=== PATIENT | female | born 1955 | race Caucasian/White ===

== ENCOUNTER 2018-12-29 08:45 | Day surgery (SDC) | payer OTHER ==
[2018-12-29] MEDS ORDERED: fentaNYL 100 MCG/2 ML VIAL IVP ONE (08:46)
[2018-12-29] MEDS ORDERED: MIDAZOLAM 2 MG/2 ML VIAL IVP ONE (08:46)
[2018-12-29] MEDS ORDERED: LACTATED RINGERS 1,000 ML IV ONE (08:52)
[2018-12-29] MEDS ORDERED: ONDANSETRON 4 MG/2 ML VIAL ONE (09:45)
[2018-12-29 10:35] VITALS: BP 137/77
== END 2018-12-29 08:46 | disposition home or self-care (01) ==
LOC: SDS 08:45
PROVIDERS: ATTEND Internal Medicine
PROC: 0DBN8ZZ Excision of Sigmoid Colon, Via Natural or Artificial Opening Endoscopic (ICD-10-PCS; 2018-12-29)
PROC: 0DBK8ZZ Excision of Ascending Colon, Via Natural or Artificial Opening Endoscopic (ICD-10-PCS; principal; 2018-12-29 10:00)
DX: Z12.11 Encounter for screening for malignant neoplasm of colon (principal); K63.89 Other specified diseases of intestine; K64.8 Other hemorrhoids
CPT/HCPCS: 45380; J7120

== ENCOUNTER 2019-03-23 08:00 | Outpatient (CLI) | payer MEDICARE, OTHER ==
[2019-03-23 12:58] LABS: ALBUMIN 4.3 g/dL (3.2-5.5); ALBUMIN/GLOBULIN RATIO 1.3 (1.0-2.2); BILIRUBIN,TOTAL 0.7 mg/dL (0.2-1.0); CALCIUM 10.3 mg/dL (8.5-10.3); CREATININE 0.7 mg/dL (0.4-1.0); TOTAL PROTEIN 7.7 g/dL (6.7-8.2)
[2019-03-23 13:01] LABS: BASOPHILS % (AUTO) 0.5 %; EOSINOPHILS # (AUTO) 0.1 10^3/uL (0.0-0.7); EOSINOPHILS % (AUTO) 1.4 %; HGB - HEMOGLOBIN 13.7 g/dL (12.0-16.0); LYMPHOCYTES # (AUTO) 1.1 10^3/uL (1.5-3.5); MEAN CORPUSCULAR HEMOGLOBIN 31.4 pg (27.0-31.0); MEAN CORPUSCULAR HGB CONC 33.1 g/dL (32.0-36.0); MEAN PLATELET VOLUME 9.4 fL (7.9-10.8); MONOCYTES # (AUTO) 0.4 10^3/uL (0.0-1.0); MONOCYTES % (AUTO) 10.9 %; NEUTROPHILS # (AUTO) 2.1 10^3/uL (1.5-6.6); NEUTROPHILS % (AUTO) 57.9 %; PLT - PLATELET COUNT 278 10^3/uL (130-450); RED BLOOD COUNT 4.36 10^6/uL (4.20-5.40); RED CELL DISTRIBUTION WIDTH 11.9 % (12.0-15.0); WHITE BLOOD COUNT 3.7 x10^3/uL (4.8-10.8)
== END 2019-03-23 23:59 | disposition home or self-care (01) ==
LOC: LAB.WCP 08:00
PROVIDERS: ATTEND Internal Medicine Rheumatology
DX: M35.00 Sjogren syndrome, unspecified (principal)
CPT/HCPCS: 36415; 80053; 85025; 85651

== ENCOUNTER 2020-06-21 09:35 | Outpatient (CLI) | payer MEDICARE, OTHER ==
[2020-06-21 10:06] LABS: CHOL/HDL RATIO 3.4 (<4.4); CHOLESTEROL 205 mg/dL; HDL CHOLESTEROL 60 mg/dL; LDL CHOLESTEROL,CALCULATED 136 mg/dL; LDL/HDL RATIO 2.3 (<4.4); TRIGLYCERIDES 47 mg/dL; VLDL CHOLESTEROL 9 mg/dL
== END 2020-06-21 09:36 | disposition home or self-care (01) ==
LOC: LAB 09:35
PROVIDERS: ATTEND Internal Medicine
DX: I70.0 Atherosclerosis of aorta (principal)
CPT/HCPCS: 36415; 80061; 83721

== ENCOUNTER 2022-08-28 11:16 | Emergency (ER) | payer OTHER, MEDICARE ==
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
[2022-08-28] MEDS: IBUPROFEN 600 MG TABLET PO STA ×2 (13:20→13:22)
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
[2022-08-28 14:55] VITALS: BP 162/87
== END 2022-08-28 15:02 | disposition home or self-care (01) ==
LOC: ED 11:16
DX: S06.0X0A Concussion without loss of consciousness, initial encounter (principal); S16.1XXA Strain of muscle, fascia and tendon at neck level, initial encounter; V49.49XA Driver injured in collision with other motor vehicles in traffic accident, initial encounter; Y92.411 Interstate highway as the place of occurrence of the external cause; R41.0 Disorientation, unspecified
CPT/HCPCS: 99283; 99284